=== PATIENT | male | born 1965 | race Caucasian/White ===

== ENCOUNTER 2017-03-22 10:13 | Emergency (ER) | payer SELFPAY ==
[2017-03-22 10:26] VITALS: BP 145/90; BMI 19.0
--- NOTE | 2017-03-22 10:46 | DR.GENAD ---
HPI - PCP Primary Care Physician: [email or web address] - HPI Comment HPI Comment: SEIZURE AT WORK, TONIC CLONIC, WITNESS. NEW ONSET. NO BLADDER OR BOWEL FUNCTION LOSS. - Complaint/Symptoms Chief Complaint Doctors Comments: SEIZURE, NEW ONSET. Chief Complaint:: EMS STATES PT HAD A WITNESSED TONIC CLONIC SEIZURE. UPON ARRIVAL TO THE ER DEPT PT IS ALERT AND ORIENTED, BUT UNAWARE OF THE EVENT TAKEN PLACE. PT STATES HE HAS NEVER HAD ANYTHING HAPPEN TO HIM LIKE THIS BEFORE. - Nurses notes reviewed Nurses Notes Review: Yes - Source History Provided: Patient - Mode of Arrival Mode of Arrival: EMS - Timing Onset of Chief Complaint: 03/22/17 Came on: Suddenly - Duration Duration: Since Onset Duration: Minutes - Severity Severity: Moderate PMH - PMH Past Medical History: Yes Past Medical History: Angina, Arthritis Past Medical History Comment: "THREATENED HEART ATTACK" Past Surgical History: No - Family History History of Family Medical Conditions: No - Social History Does patient currently use any type of tobacco product: Yes Have you used tobacco products in the last 12 months: Yes Type of Tobacco Use: Cigarettes Does any household member use tobacco: Yes Alcohol Use: None Do you use any recreational Drugs:: Yes (THC) Lives With: Family Lives Where: Home - infectious screening In the last 2 months have you had wt loss of >10#?: NO Have you had fever, night sweats or hemotysis?: No Have you traveled outside the country in the last 6 months?: No Isolation: Standard ROS - Review of Systems Constitutional: No Symptoms Reported Eyes: No Symptoms Reported ENTM: No Symptoms Reported Respiratoy: No Symptoms Reported Cardiovascular: No Symptoms Reported Gastrointestinal/Abdominal: No Symptoms Reported Genitourinary: No Symptoms Reported Neurological: Headache Musculoskeletal: No Symptoms Reported Integumentary: Other (SCALP LACERSTION) Hematologic/Lymphatic: No Symptoms Reported Endocrine: No Symptoms Reported All Other Systems: Reviewed and Negative PE - Vital Signs Vitals: Temperature 98.2 F Pulse Rate 73 Respiratory Rate 20 Blood Pressure 145/90 O2 Sat by Pulse Oximetry 97 - General Limitations: No Limitations General Appearance: Alert - Head Head Exam: Normal Inspection - Eyes Eye exam: Normal Appearance - ENT ENT Exam: Normal External Ear Exam External Ear Exam: Normal External Inspection TM/Canal Exam: Bilateral Normal Nose Exam: Normal Nose Exam Mouth Exam: Normal Inspection Throat Exam: Normal Inspection - Neck Neck Exam: Trachea Midline - Chest Chest Inspection: Symmetric Chest Wall Rise - Respiratory Respiratory Exam: Normal Lung Sounds Bilat Respiratory Exam: Bilateral Clear to Auscultation - Cardiovascular Cardiovascular Exam: Regular Rate, Normal Rhythm, Normal Heart Sounds - Abdominal Exam Abdominal Exam: Normal Bowel Sounds, Soft. negative: Tenderness - Extremities Extremities Exam: Normal Inspection - Back Back Exam: Normal Inspection - Neurologic Neurological Exam: Alert, Oriented X3, CN II-XII Intact, Reflexes Normal. negative: Motor Sensory Deficit - Psychiatric Psychiatric Exam: Anxious - Skin Skin Exam: Normal Color MDM - Additional Information Additional Information Obtained From: Family - Differential Diagnosis Differential Diagnosis: NEW ONSET SEIZURE. LACERATION SCALP Course - Treatment Treatment: SEE ORDERS. - Consultation Consultation Comments: DISCUSS PATIENT WITH DR. TREVINO AT [facility]. HE ACCEPTED PATIENT FOR TRANSFER. - Education/Counseling Education/Counseling: Patient, Education Educated On: Diagnosis ROR - Labs Reviewed Laboratory Results Reviewed?: Yes Result Diagrams: 03/22/17 10:59 03/22/17 10:59 Laboratory: WBC 5.3 X10^3/uL (3.6-10.0) 03/22/17 10:59 RBC 4.38 X10^6/uL (4.7-6.0) L 03/22/17 10:59 Hgb 13.3 g/dL (13.5-18.0) L 03/22/17 10:59 Hct 38.3 % (42.0-54.0) L 03/22/17 10:59 MCV 87.4 fL (80.0-100.0) 03/22/17 10:59 MCH 30.3 pg (27.0-34.0) 03/22/17 10:59 MCHC 34.7 g/dL (33.0-35.0) 03/22/17 10:59 RDW 13.8 % (11.6-16.5) 03/22/17 10:59 Plt Count 159 X10^3/uL (150.0-450.0) 03/22/17 10:59 MPV 8.9 fL (7.4-11.0) 03/22/17 10:59 Neut % 60.2 % (42.0-75.0) 03/22/17 10:59 Lymph % 26.1 % (21.0-51.0) 03/22/17 10:59 Howard % 8.3 % (0.0-13.0) 03/22/17 10:59 Eos % 4.0 % (0.9-2.9) H 03/22/17 10:59 Baso % 1.4 % (0.2-1.0) H 03/22/17 10:59 Neut # 3.2 x10^3/uL (2.2-4.8) 03/22/17 10:59 Lymph # 1.4 X10^3/uL (1.3-2.9) 03/22/17 10:59 Howard # 0.4 x10^3/uL (0.3-0.8) 03/22/17 10:59 Eos # 0.2 x10^3/uL (0.0-0.2) 03/22/17 10:59 Baso # 0.1 X10^3/uL (0.0-0.1) 03/22/17 10:59 Absolute Nucleated RBC 0.1 /100WBC 03/22/17 10:59 Sodium 140 mmol/L (136-145) 03/22/17 10:59 Corrected Sodium TNP 03/22/17 10:59 Potassium 3.8 mmol/L (3.5-5.1) 03/22/17 10:59 Chloride 105 mmol/L (98-107) 03/22/17 10:59 Carbon Dioxide 28.1 mmol/L (21-32) 03/22/17 10:59 BUN 19 mg/dL (7-18) H 03/22/17 10:59 Creatinine 1.03 mg/dL (0.70-1.30) 03/22/17 10:59 Est GFR (MDRD) Af Amer > 60 (>60) 03/22/17 10:59 Est GFR (MDRD) Non-Af > 60 (>60) 03/22/17 10:59 Glucose 91 mg/dL (65-99) 03/22/17 10:59 Calcium 8.1 mg/dL (8.5-10.1) L 03/22/17 10:59 Corrected Calcium TNP 03/22/17 10:59 Total Bilirubin 1.00 mg/dL (0.2-1.0) 03/22/17 10:59 AST 16 Units/L (15-37) 03/22/17 10:59 ALT 19 Units/L (12-78) 03/22/17 10:59 Alkaline Phosphatase 52 Units/L (46-116) 03/22/17 10:59 Creatine Kinase 143 Units/L (39-308) 03/22/17 10:59 CK-MB (CK-2) 3.1 ng/mL (0-4.0) 03/22/17 10:59 CK/CKMB % Calc 2.2 % (<4) 03/22/17 10:59 Troponin I < 0.02 ng/mL (0-1.5) 03/22/17 10:59 Total Protein 6.4 g/dL (6.4-8.2) 03/22/17 10:59 Albumin 3.5 g/dL (3.4-5.0) 03/22/17 10:59 Globulin 2.9 g/dL (2.5-4.5) 03/22/17 10:59 Albumin/Globulin Ratio 1.2 Ratio (1.1-2.1) 03/22/17 10:59 - XRAY XRAY Interpreted by: Radiologist XRAY Findings: REPORT DISCUSS WITH PATIENT. Procedures - Laceration/Wound Repair Right Head Wound Length (cm): 4 Wound's Depth, Shape: Linear Wound Explored: clean Betadine Prep?: Yes Anesthesia: 1% Lidocaine Wound Debrided: minimal Wound Repaired With: sutures Suture Size/Type: 2:0, Vicryl Layer Closure?: No Sterile Dressing Applied?: Yes Splint Applied?: No Sling Applied?: No - Diagnosis Discharge Problem: Pontine lesion, New onset seizure Scalp laceration Qualifiers: Encounter type: initial encounter Qualified Code(s): S01.01XA - Laceration without foreign body of scalp, initial encounter Scalp contusion Qualifiers: Encounter type: initial encounter Qualified Code(s): S00.03XA - Contusion of scalp, initial encounter - Discharge Plan Disposition: 02 XFER SHT-TRM HOSP Condition: Stable - Follow ups/Referrals Follow ups/Referrals: NFD,None [Primary Care Provider] - 3 days - Instructions
[2017-03-22 11:06] LABS: BASOPHILS # (AUTO) 0.1 X10^3/uL (0.0-0.1); BASOPHILS % (AUTO) 1.4 % (0.2-1.0); EOSINOPHILS # (AUTO) 0.2 x10^3/uL (0.0-0.2); HEMATOCRIT 38.3 % (42.0-54.0); HEMOGLOBIN 13.3 g/dL (13.5-18.0); LYMPHOCYTES # (AUTO) 1.4 X10^3/uL (1.3-2.9); LYMPHOCYTES % (AUTO) 26.1 % (21.0-51.0); MEAN CORPUSCULAR HEMOGLOBIN 30.3 pg (27.0-34.0); MEAN CORPUSCULAR HGB CONC 34.7 g/dL (33.0-35.0); MEAN CORPUSCULAR VOLUME 87.4 fL (80.0-100.0); MEAN PLATELET VOLUME 8.9 fL (7.4-11.0); MONOCYTES # (AUTO) 0.4 x10^3/uL (0.3-0.8); MONOCYTES % (AUTO) 8.3 % (0.0-13.0); NEUTROPHILS # (AUTO) 3.2 x10^3/uL (2.2-4.8); NEUTROPHILS % (AUTO) 60.2 % (42.0-75.0); PLATELET COUNT 159 X10^3/uL (150.0-450.0); RED BLOOD COUNT 4.38 X10^6/uL (4.7-6.0); RED CELL DISTRIBUTION WIDTH 13.8 % (11.6-16.5); WHITE BLOOD COUNT 5.3 X10^3/uL (3.6-10.0)
--- NOTE | 2017-03-22 11:20 | RAD ---
HISTORY: Chest pain. Study: Chest one view Comparison: None. Findings: The trachea is midline. The cardiac silhouette is unremarkable. The lungs are clear without focal infiltrate or effusion. The bony thorax is unremarkable. IMPRESSION: 1. No acute cardiopulmonary disease. Reported By:
[2017-03-22 11:22] LABS: BLOOD UREA NITROGEN 19 mg/dL (7-18); CALCIUM 8.1 mg/dL (8.5-10.1); CARBON DIOXIDE 28.1 mmol/L (21-32); CHLORIDE 105 mmol/L (98-107); CREATININE 1.03 mg/dL (0.70-1.30); GLUCOSE 91 mg/dL (65-99); SODIUM 140 mmol/L (136-145); TROPONIN I < 0.02 ng/mL (0-1.5); eGFR BLACK RACES > 60 (>60); eGFR NON BLACK RACES > 60 (>60)
[2017-03-22 11:26] LABS: ALANINE AMINOTRANSFERASE 19 Units/L (12-78); ALBUMIN 3.5 g/dL (3.4-5.0); ALKALINE PHOSPHATASE 52 Units/L (46-116); ASPARTATE AMINO TRANSFERASE 16 Units/L (15-37); CKMB % 2.2 % (<4); CREATINE KINASE 143 Units/L (39-308); CREATINE KINASE MB 3.1 ng/mL (0-4.0); TOTAL PROTEIN 6.4 g/dL (6.4-8.2)
--- NOTE | 2017-03-22 11:30 | CT ---
HISTORY: Trauma, seizure. Study: CT brain without contrast Comparison: None. Technique: Multiple axial images of the brain were obtained from the skull base to the vertex without administr ation of IV contrast. Dose reduction techniques including Automated Exposure Control (AEC) and adju stment of mA and kV were utilized. Findings: Within the mark there is a 2.7 x 1.7 x 1.9 cm heterogeneous hypodense focus which may represent acut e ischemia/infarction versus mass. No associated hydrocephalus or herniation. Nonspecific calcificat ions are seen within the 4th ventricle. Remaining fischer and white matter differentiation appears norm al for age. Mild cortical atrophy. No extra-axial fluid collections are seen. The ventricular syst em is symmetric and nondilated. Soft tissue hematoma over the posterior right skull. The osseous str uctures are otherwise intact. Mild mucosal thickening of the ethmoidal air cells and right maxillary sinus. Remaining visualized paranasal sinuses and mastoid air cells are clear. IMPRESSION: 1. 2.7 cm heterogeneous hypodense focus within the mark. This may represent acute ischemia/infarcti on versus mass. No associated hydrocephalus or midline shift. Recommend MRI of the brain with and wi thout contrast for further characterization. 2. Sinus disease as above. Reported By:
[2017-03-22] MEDS ORDERED: XYLOCAINE 1 % (PLAIN) ONE (11:50)
== END 2017-03-22 13:09 | disposition short-term general hospital (02) ==
LOC: ER 10:38
PROC: 0WQ00ZZ Repair Head, Open Approach (ICD-10-PCS; principal; 2017-03-22)
DX: S01.01XA Laceration without foreign body of scalp, initial encounter (principal); S00.03XA Contusion of scalp, initial encounter; R56.9 Unspecified convulsions; G93.89 Other specified disorders of brain; R51 Headache
CPT/HCPCS: 12032; 36415; 70450; 71010; 80053; 82550; 82553; 84484; 85025; 93005; 93010; 96365; 99284; 99285; J2001

== ENCOUNTER 2017-03-27 20:29 | Emergency (ER) | payer SELFPAY ==
[2017-03-27 20:38] VITALS: BP 119/73; BMI 17.9
[2017-03-27 21:13] LABS: BILIRUBIN,URINE NEGATIVE (NEGATIVE); BLOOD/HEMOGLOBIN,URINE 2+ (NEGATIVE); GLUCOSE, URINE NEGATIVE (NEGATIVE); KETONES,URINE NEGATIVE (NEGATIVE); LEUKOCYTE ESTERASE ,URINE NEGATIVE (NEGATIVE); NITRITES,URINE NEGATIVE (NEGATIVE); PROTEIN,URINE 2+ (NEGATIVE); UROBILINOGEN,URINE 1+ (NORMAL)
[2017-03-27 21:17] LABS: BASOPHILS % (AUTO) 0.4 % (0.2-1.0); EOSINOPHILS # (AUTO) 0.3 x10^3/uL (0.0-0.2); EOSINOPHILS % (AUTO) 4.3 % (0.9-2.9); HEMATOCRIT 42.9 % (42.0-54.0); LYMPHOCYTES # (AUTO) 2.4 X10^3/uL (1.3-2.9); LYMPHOCYTES % (AUTO) 36.2 % (21.0-51.0); MEAN CORPUSCULAR HEMOGLOBIN 30.6 pg (27.0-34.0); MEAN CORPUSCULAR HGB CONC 34.9 g/dL (33.0-35.0); MEAN CORPUSCULAR VOLUME 87.6 fL (80.0-100.0); MEAN PLATELET VOLUME 9.5 fL (7.4-11.0); MONOCYTES # (AUTO) 0.6 x10^3/uL (0.3-0.8); MONOCYTES % (AUTO) 9.6 % (0.0-13.0); NEUTROPHILS # (AUTO) 3.3 x10^3/uL (2.2-4.8); NEUTROPHILS % (AUTO) 49.5 % (42.0-75.0); PLATELET COUNT 217 X10^3/uL (150.0-450.0); RED BLOOD COUNT 4.89 X10^6/uL (4.7-6.0); RED CELL DISTRIBUTION WIDTH 14.3 % (11.6-16.5); WHITE BLOOD COUNT 6.7 X10^3/uL (3.6-10.0)
[2017-03-27 21:26] LABS: APPEARANCE,URINE CLEAR (CLEAR); BACTERIA,URINE 1+ /HPF (NEGATIVE); COLOR,URINE YELLOW (YELLOW); MUCUS,URINE MANY /HPF (NEGATIVE); SQUAMOUS EPITHELIAL CELL,UR RARE /HPF (NEGATIVE)
[2017-03-27 21:26] LABS: ALANINE AMINOTRANSFERASE 22 Units/L (12-78); ALBUMIN 4.1 g/dL (3.4-5.0); ALKALINE PHOSPHATASE 67 Units/L (46-116); ASPARTATE AMINO TRANSFERASE 19 Units/L (15-37); BLOOD ALCOHOL < 3 mg/dL (0-19.9); BLOOD UREA NITROGEN 22 mg/dL (7-18); CALCIUM 8.6 mg/dL (8.5-10.1); CARBON DIOXIDE 32.1 mmol/L (21-32); CHLORIDE 103 mmol/L (98-107); CREATININE 1.29 mg/dL (0.70-1.30); GLUCOSE 82 mg/dL (65-99); SODIUM 141 mmol/L (136-145); TOTAL PROTEIN 7.5 g/dL (6.4-8.2); eGFR BLACK RACES > 60 (>60); eGFR NON BLACK RACES > 60 (>60)
--- NOTE | 2017-03-27 21:31 | DR.GENAD ---
HPI - PCP Primary Care Physician: SKYLAR - HPI Comment HPI Comment: HISTORY PER NURSING NOTE. REQUESTING MEDICAL CLEARANCE FOR REHAB. ALREADY CALL [facility] AND IS WORKING WITH THEM. NO SEIZURE RECENTLY. EVALUATED IN ED IN [place]. NO SEIZURE MED GIVEN. SUTURE DUE TO COME OUT IN 5 DAYS. - Complaint/Symptoms Chief Complaint Doctors Comments: REQUESTING MEDICAL CLEARANCE FOR DRUG REHAB. DENIES SUICIDAL OR HOMICIDAL IDEATIONS OR HALLUCINATIONS. Chief Complaint:: "I HAD A SEIZURE LAST WEEK AND THEY PUT THESE STITCHES IN MY HEAD. I THINK THEY MAY NEED TO BE TAKEN OUT. I ALSO WANT HELP TO GET OFF THE DRUGS. I SMOKE CRACK, I LOST MY JOB, I AM HOMELESS, I SLEEP IN A CAR, I HADN'T ATE IN 3 DAYS UNTIL TODAY. I HAVE BEEN SMOKING CRACK ALL DAY TODAY. I CALLED THIS HERE PLACE ([facility]) AND THEY SAID TO COME HERE AND YALL COULD HELP ME GET PLACED." - Nurses notes reviewed Nurses Notes Review: Yes - Source History Provided: Patient - Mode of Arrival Mode of Arrival: Ambulatory - Timing Onset of Chief Complaint: 03/27/17 Came on: Gradually - Duration Duration: Constant Duration: Days - Severity Severity: Moderate PMH - PMH Past Medical History: Yes Past Medical History: Angina, Arthritis, Seizures Past Surgical History: No - Family History History of Family Medical Conditions: No - Social History Type of Tobacco Use: Cigarettes Alcohol Use: None Do you use any recreational Drugs:: Yes (SMOKE CRACK, THC) Lives With: Other Lives Where: Homeless - infectious screening Have you traveled outside the country in the last 6 months?: No Isolation: Standard ROS - Review of Systems Constitutional: No Symptoms Reported Eyes: No Symptoms Reported ENTM: No Symptoms Reported Respiratoy: No Symptoms Reported Cardiovascular: No Symptoms Reported Gastrointestinal/Abdominal: No Symptoms Reported Genitourinary: No Symptoms Reported. negative: Dysuria, Frequency, Hematuria Neurological: No Symptoms Reported Musculoskeletal: No Symptoms Reported Integumentary: Other (HEALING SCALP LACERATION) Hematologic/Lymphatic: No Symptoms Reported Endocrine: No Symptoms Reported All Other Systems: Reviewed and Negative PE - Vital Signs Vitals: Temperature 97.8 F Pulse Rate 75 Respiratory Rate 16 Blood Pressure 119/73 O2 Sat by Pulse Oximetry 95 - General Limitations: No Limitations General Appearance: Alert - Head Head Exam: Other (HEALING SCALP LACERATION.) - Eyes Eye exam: Normal Appearance - ENT ENT Exam: Normal External Ear Exam External Ear Exam: Normal External Inspection TM/Canal Exam: Bilateral Normal Nose Exam: Normal Nose Exam Mouth Exam: Normal Inspection Throat Exam: Normal Inspection - Neck Neck Exam: Trachea Midline - Chest Chest Inspection: Symmetric Chest Wall Rise - Respiratory Respiratory Exam: Normal Lung Sounds Bilat Respiratory Exam: Bilateral Clear to Auscultation - Cardiovascular Cardiovascular Exam: Regular Rate, Normal Rhythm, Normal Heart Sounds - Abdominal Exam Abdominal Exam: Normal Bowel Sounds, Soft. negative: Tenderness - Extremities Extremities Exam: Normal Inspection - Back Back Exam: Normal Inspection - Neurologic Neurological Exam: Alert, Oriented X3 - Psychiatric Psychiatric Exam: Anxious - Skin Skin Exam: Erythema (HEALING SCALP LACERATION) MDM - Differential Diagnosis Differential Diagnosis: SUBSTANCE USE DISORDER, MEDICAL CLEARANCE FOR REHAB Course - Treatment Treatment: SEE ORDERS - Education/Counseling Education/Counseling: Patient, Education Educated On: Treatment, Diagnosis, Needs for Follow Up ROR - Labs Reviewed Laboratory Results Reviewed?: Yes Result Diagrams: 03/27/17 21:00 03/27/17 21:00 Laboratory: WBC 6.7 X10^3/uL (3.6-10.0) 03/27/17 21:00 RBC 4.89 X10^6/uL (4.7-6.0) 03/27/17 21:00 Hgb 15.0 g/dL (13.5-18.0) 03/27/17 21:00 Hct 42.9 % (42.0-54.0) 03/27/17 21:00 MCV 87.6 fL (80.0-100.0) 03/27/17 21:00 MCH 30.6 pg (27.0-34.0) 03/27/17 21:00 MCHC 34.9 g/dL (33.0-35.0) 03/27/17 21:00 RDW 14.3 % (11.6-16.5) 03/27/17 21:00 Plt Count 217 X10^3/uL (150.0-450.0) 03/27/17 21:00 MPV 9.5 fL (7.4-11.0) 03/27/17 21:00 Neut % 49.5 % (42.0-75.0) 03/27/17 21:00 Lymph % 36.2 % (21.0-51.0) 03/27/17 21:00 [place] % 9.6 % (0.0-13.0) 03/27/17 21:00 Eos % 4.3 % (0.9-2.9) H 03/27/17 21:00 Baso % 0.4 % (0.2-1.0) 03/27/17 21:00 Neut # 3.3 x10^3/uL (2.2-4.8) 03/27/17 21:00 Lymph # 2.4 X10^3/uL (1.3-2.9) 03/27/17 21:00 [place] # 0.6 x10^3/uL (0.3-0.8) 03/27/17 21:00 Eos # 0.3 x10^3/uL (0.0-0.2) H 03/27/17 21:00 Baso # 0.0 X10^3/uL (0.0-0.1) 03/27/17 21:00 Absolute Nucleated RBC 0.0 /100WBC 03/27/17 21:00 Sodium 141 mmol/L (136-145) 03/27/17 21:00 Corrected Sodium TNP 03/27/17 21:00 Potassium 3.5 mmol/L (3.5-5.1) 03/27/17 21:00 Chloride 103 mmol/L (98-107) 03/27/17 21:00 Carbon Dioxide 32.1 mmol/L (21-32) H 03/27/17 21:00 BUN 22 mg/dL (7-18) H 03/27/17 21:00 Creatinine 1.29 mg/dL (0.70-1.30) 03/27/17 21:00 Est GFR (MDRD) Af Amer > 60 (>60) 03/27/17 21:00 Est GFR (MDRD) Non-Af > 60 (>60) 03/27/17 21:00 Glucose 82 mg/dL (65-99) 03/27/17 21:00 Calcium 8.6 mg/dL (8.5-10.1) 03/27/17 21:00 Corrected Calcium TNP 03/27/17 21:00 Total Bilirubin 0.90 mg/dL (0.2-1.0) 03/27/17 21:00 AST 19 Units/L (15-37) 03/27/17 21:00 ALT 22 Units/L (12-78) 03/27/17 21:00 Alkaline Phosphatase 67 Units/L (46-116) 03/27/17 21:00 Total Protein 7.5 g/dL (6.4-8.2) 03/27/17 21:00 Albumin 4.1 g/dL (3.4-5.0) 03/27/17 21:00 Globulin 3.4 g/dL (2.5-4.5) 03/27/17 21:00 Albumin/Globulin Ratio 1.2 Ratio (1.1-2.1) 03/27/17 21:00 Specimen Type Clean catch urine 03/27/17 21:03 Urine Color Yellow (YELLOW) 03/27/17 21:03 Urine Appearance Clear (CLEAR) 03/27/17 21:03 Urine pH 5.0 (5.0 - 8.0) 03/27/17 21:03 Ur Specific Hector 1.030 (1.000-1.030) 03/27/17 21:03 Urine Protein 2+ (NEGATIVE) 03/27/17 21:03 Urine Glucose (UA) Negative (NEGATIVE) 03/27/17 21:03 Urine Ketones Negative (NEGATIVE) 03/27/17 21:03 Urine Occult Blood 2+ (NEGATIVE) 03/27/17 21:03 Urine Nitrite Negative (NEGATIVE) 03/27/17 21:03 Urine Bilirubin Negative (NEGATIVE) 03/27/17 21:03 Urine Urobilinogen 1+ (NORMAL) 03/27/17 21:03 Ur Leukocyte Esterase Negative (NEGATIVE) 03/27/17 21:03 Urine RBC 3-5 /HPF (NEGATIVE) 03/27/17 21:03 Urine WBC 0-2 /HPF (NEGATIVE) 03/27/17 21:03 Ur Squamous Epith Cells Rare /HPF (NEGATIVE) 03/27/17 21:03 Urine Bacteria 1+ /HPF (NEGATIVE) 03/27/17 21:03 Urine Mucus Many /HPF (NEGATIVE) 03/27/17 21:03 Ur Culture Indicated? No/not indicated 03/27/17 21:03 Salicylates 2.9 mg/dL (2.8-20) 03/27/17 21:00 Urine Opiates Screen Negative (NEG=<300) 03/27/17 21:03 Urine Methadone Screen Negative (NEG=<300) 03/27/17 21:03 Acetaminophen 0.0 ug/mL (10-30) L 03/27/17 21:00 Ur Barbiturates Screen Negative (NEG=<200) 03/27/17 21:03 Ur Phencyclidine Scrn Negative (NEG=<25) 03/27/17 21:03 Ur Amphetamines Screen Negative (NEG=<1000) 03/27/17 21:03 U Benzodiazepines Scrn Negative (NEG=<200) 03/27/17 21:03 Urine Cocaine Screen Positive (NEG=<300) 03/27/17 21:03 U Marijuana (THC) Screen Positive (NEG=<50) A 03/27/17 21:03 Ethyl Alcohol mg/dL < 3 mg/dL (0-19.9) 03/27/17 21:00 - EKG Rhythm: NSR (EKG NOTED) - Diagnosis Discharge Problem: Substance use disorder - Discharge Plan Disposition: 01 HOME, SELF-CARE Condition: Stable - Follow ups/Referrals Follow ups/Referrals: NFD,None [Primary Care Provider] - 3 days - Instructions Instructions: Stimulant Use Disorder-Cocaine, Substance Use Disorder Additional Instructions: FOLLOW UP WITH MENTAL HEALTH SOON POSSIBLE. RETURN TO ED IF NEEDED.
[2017-03-27 21:32] LABS: SALICYLATE 2.9 mg/dL (2.8-20)
== END 2017-03-27 23:37 | disposition home or self-care (01) ==
LOC: ER 20:43
DX: F19.20 Other psychoactive substance dependence, uncomplicated (principal)
CPT/HCPCS: 36415; 80053; 80307; 80320; 81001; 85025; 93005; 93010; 99282; 99283; G0434; G6038; G6039; G6040